=== PATIENT | male | born 1975 | race Caucasian/White ===

== ENCOUNTER 2016-05-23 23:16 | Emergency (ER) | payer BC ==
[2016-05-23] MEDS ORDERED: KETOROLAC TROMETHAMINE 60 MG/2 ML VIAL IM ONE ×2 (23:27→23:29)
--- OUTSIDE RECORDS SUMMARY | 2016-05-23 23:37 | XMS REPORT | Continuity of Care Document ---
:1975 Author Organization [employer] [place] [address] Care Team Providers Name Role Phone Cindy Faustin Primary Care Provider [phone] Source Comments This disclosure is being made pursuant to the [facility] program and maynot contain all information available regarding this patient.[facility] Active Allergies and Adverse Reactions Allergen Noted Date Severity Reactions Comments Gabapentin 02/03/2016 Other (See Comments) Personality changes Topamax 02/03/2016 Other (See Comments) Personality changes Current Medications Be aware that medications may not be up to date as of this document. Alwaysverify current medications with the patient. Prescription Sig. Disp. Refills Start Date End Date Status ibuprofen Take 600 mg by Active (ADVIL,MOTRIN) 200 MG mouth every 6 tablet (six) hours as needed for Pain. acetaminophen (TYLENOL) Take 325-650 mg Active 325 MG tablet by mouth every 4 (four) hours as needed for Pain. benzonatate (TESSALON) Take 1 capsule 21 capsule 0 03/30/2016 Active 100 MG capsule by mouth 3 (three) times daily as needed for Cough. Active Problems Problem Noted Date Chronic neck pain 02/03/2016 History of bipolar disorder 02/03/2016 Excessive anger 02/03/2016 History of ADHD 02/03/2016 Smoker 02/03/2016 Most Recent Encounters Date Type Specialty Providers Description 03/30/2016 Clinical Support Radiology Cindy Faustin, Persistent cough for 3 MD weeks or longer; Amber Esparza, RT Fever, unspecified fever cause 03/30/2016 Office Visit Internal Medicine Cindy Faustin, Acute bronchitis, unspecified organism (Primary Dx); Persistent cough for 3 weeks or longer; Fever, unspecified fever cause; Smoker; Chronic neck pain; History of bipolar disorder; Hypertriglyceridemia; Marijuana use 03/17/2016 Scanned Document Provider, Not In System 03/15/2016 Scanned Document Pain Medicine Provider, Not In System 03/11/2016 Telephone Pain Medicine Myriam Cloud, Sigrid JACK SETTER 03/11/2016 Telephone Internal Medicine Bertloh, Neck Pain Jena Alva RN 03/10/2016 Office Visit Pain Medicine Cindy Faustin, Cervicalgia ( Primary MD Dx); Degeneration of Michele Roth MD cervical intervertebral disc; Myofacial muscle pain; Chronic pain syndrome; Encounter for long-term opiate analgesic use 02/24/2016 Scanned Document Internal Medicine Provider, Not In System Social History Tobacco Use Types Packs/Day Years Used Date Current Every Day Smoker 1.5 Smokeless Tobacco: Never Used Tobacco Cessation:Counseling Given: Yes Comments: Alcohol Use Drinks/Week oz/Week Comments No Last Filed Vital Signs Vital Sign Reading Time Taken Blood Pressure 126/82 03/30/2016 2:26 PM [facility] Pulse 102 03/30/2016 2:26 PM [facility] Temperature 37.2 C (99 F) 03/30/2016 2:26 PM [facility] Respiratory Rate 18 03/30/2016 2:26 PM [facility] Height 1.676 m (5' 6") 02/03/2016 2:13 PM [facility] Weight 69.4 kg (153 lb) 03/30/2016 2:26 PM [facility] Body Mass Index 24.71 03/30/2016 2:26 PM [facility] Oxygen Saturation 97% 03/30/2016 2:26 PM [facility] Plan of Care Health Maintenance Due Date Last Done Comments Pneumococcal Medium Risk 19-64 yo 05/27/1995 (1 of 1 - PPSV23) Tetanus/Pertussis (1 - Tdap) 05/27/1995 Influenza Immunization (#1) 2017 Postponed from 10/16/2015 (Patient Declined) Results from Last 3 Months XR CHEST 2 VIEWS PA AND LAT (03/30/2016 3:08 PM) Narrative XR CHEST 2 VIEWS PA AND LAT Clinical History: cough for 3 weeks / fever / rule out pneumonia COMPARISON: None FINDINGS:Two views of the chest were obtained. The heart, medistinum, and pulmonary vasculature are unremarkable. There is no definite evidence of a pneumothorax. There is no focal consolidation or pleural effusion. The osseous structures are unremarkable. IMP: 1. No acute cardiopulmonary process. THIS IS AN ELECTRONICALLY SIGNED REPORT BY READING PHYSICIAN: Gama Hernández D.O.2016-03-30 16:32:51 Procedure Note Eugenio, External Ris In - TueMar 30, 2016 4:33 PM [facility] XR CHEST 2 VIEWS PA AND LAT Clinical History: cough for 3 weeks / fever / rule out pneumonia COMPARISON: None FINDINGS: Two views of the chest were obtained. The heart, medistinum, and pulmonary vasculature are unremarkable. There is no definite evidence of a pneumothorax. There is no focal consolidation or pleural effusion. The osseous structures are unremarkable. IMP: 1. No acute cardiopulmonary process. THIS IS AN ELECTRONICALLY SIGNED REPORT BY READING PHYSICIAN: Gama Hernández D.O. 2016-03-30 16:32:51
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
[2016-05-24 00:57] VITALS: BP 120/80
== END 2016-05-24 01:13 ==
LOC: ER 23:16
DX: M54.2 Cervicalgia (principal); S16.1XXA Strain of muscle, fascia and tendon at neck level, initial encounter; Y35.813A Legal intervention involving manhandling, suspect injured, initial encounter; Y93.9 Activity, unspecified; Y92.410 Unspecified street and highway as the place of occurrence of the external cause